=== PATIENT | female | born 1975 | race Caucasian/White ===

== ENCOUNTER 2016-11-01 07:40 | Observation (INO) | payer OTHER ==
[2016-11-01] MEDS ORDERED: SODIUM CHLORIDE 0.9% 1,000 ML IV STA (08:31)
[2016-11-01] MEDS ORDERED: DICYCLOMINE 10 MG/ML 2 ML AMP IM STA (08:52)
[2016-11-01] MEDS ORDERED: SODIUM CHLORIDE 0.9% 500 ML IV STA (08:52)
[2016-11-01 08:54] LABS: Basophils # (A) 0.3 k/uL (0-0.2); Basophils % (A) 2 %; CH 34.6; CHCM 35.7; Eosinophils # (A) 0.2 k/uL (0-0.7); Eosinophils % (A) 1 %; HCT 45.6 % (34.0-46.0); HDW 2.56; HGB 15.4 gm/dL (11.4-16.0); Luc # (Auto) 0.15; Luc % (Auto) 1; Lymphocytes # (A) 3.4 k/uL (1.0-4.8); Lymphocytes % (A) 19 %; MCHC 33.9 g/dL (31.0-37.0); MCV 97.6 fL (80.0-100.0); Mean Platelet Volume 7.5; Monocytes # (A) 0.8 k/uL (0-1.0); Monocytes % (A) 5 %; Neutrophils # (A) 13.5 k/uL (1.3-7.7); Neutrophils % (A) 74 %; RBC 4.67 m/uL (3.80-5.40); RDW 13.3 % (11.5-15.5); WBC 18.3 k/uL (3.8-10.6); WBC (Perox) 17.67
--- NOTE | 2016-11-01 08:58 | ED ---
General Adult HPI - General Chief complaint: GI Bleed Stated complaint: abd pain, rectal bleeding Time Seen by Provider: 11/01/16 08:35 Source: patient, RN notes reviewed Mode of arrival: ambulatory Limitations: no limitations - History of Present Illness Initial comments: 41-year-old female presents to the emergency department with a chief complaint of rectal bleeding. Patient states on Sunday she started to have some lower abdominal cramping and she had one episode of diarrhea. Patient states that then since Sunday she continues to have abdominal cramping but now instead of diarrhea she just having bright red blood per rectum. Patient states only happens when she feels like she has to go the bathroom. Patient states she's had multiple episodes. Patient states this morning she had at least 4. Patient states she hasn't had any lightheadedness or dizziness with this. Patient denies any history of this in the past. Patient does have a family history of Crohn's disease. Patient has never been diagnosed herself. Patient states there is been no nausea or vomiting with this. Patient states she was concerned due to the continued abdominal cramping and diarrhea so she thought that she should be evaluated.Patient denies any recent fever, chills, shortness of breath, chest pain, back pain, nausea vomiting, numbness or tingling, dysuria or hematuria, constipation or diarrhea, headaches or visual changes, or any other current symptoms. - Related Data Home Medications Medication Instructions Recorded Confirmed ALPRAZolam [Xanax] 1 mg PO QID PRN 04/04/15 11/01/16 Levothyroxine Sodium [Synthroid] 25 mcg PO DAILY 04/04/15 11/01/16 Omeprazole [PriLOSEC] 20 mg PO AC-BID 04/04/15 11/01/16 amLODIPine BESYLATE [Norvasc] 10 mg PO DAILY 04/04/15 11/01/16 Butalb/Asprin/Caff 50-325-40Mg 1 cap PO TID PRN 11/01/16 11/01/16 [Fiorinal 50-325-40 MG] Epitol 200mg 200 mg PO BID 11/01/16 11/01/16 Folic Acid 1 mg PO DAILY 11/01/16 11/01/16 Hydrocodone/Acetaminophen [[place] 1 tab PO Q6H PRN 11/01/16 11/01/16 10-325] Lisinopril 20 mg PO BID 11/01/16 11/01/16 Methotrexate Sodium [Methotrexate] 12.5 mg PO FR 11/01/16 11/01/16 Propranolol HCl 80 mg PO BID 11/01/16 11/01/16 Verapamil HCl [Verapamil ER] 180 mg PO DAILY 11/01/16 11/01/16 Vortioxetine Hydrobromide 20 mg PO DAILY 11/01/16 11/01/16 [Trintellix] Allergies Allergy/AdvReac Type Severity Reaction Status Date / Time Penicillins Allergy Anaphylaxis Verified 11/01/16 08:03 Review of Systems ROS Statement: Those systems with pertinent positive or pertinent negative responses have been documented in the HPI. ROS Other: All systems not noted in ROS Statement are negative. Past Medical History Past Medical History: Fibromyalgia Additional Past Medical History / Comment(s): migraines History of Any Multi-Drug Resistant Organisms: None Reported Past Surgical History: Cholecystectomy, Hysterectomy Past Psychological History: Anxiety, Depression Smoking Status: Current every day smoker Past Alcohol Use History: None Reported Past Drug Use History: None Reported General Exam - General Exam Comments Initial Comments: General: The patient is awake and alert, in no distress, and does not appear acutely ill. Eye: Pupils are equal, round and reactive to light, extra-ocular movements are intact; there is normal conjunctiva bilaterally. No signs of icterus. Ears, nose, mouth and throat: There are moist mucous membranes and no oral lesions. Neck: The neck is supple, there is no tenderness. Cardiovascular: There is a regular rate and rhythm. No murmur, rub or gallop is appreciated. Respiratory: Lungs are clear to auscultation, respirations are non-labored, breath sounds are equal. No wheezes, stridor, rales, or rhonchi. Gastrointestinal: Soft, non-distended, mild tenderness in the right lower quadrant of the abdomen without masses or organomegaly noted. There is no rebound or guarding present. No CVA tenderness. Bowel sounds are unremarkable. Back: There is no tenderness to palpation in the midline. There is no obvious deformity. No rashes noted. Musculoskeletal: Normal ROM, no tenderness, There is no pedal edema. There is no calf tenderness or swelling. Sensation intact. Pulses equal bilaterally 2+. Neurological: CN II-XII intact, There are no obvious motor or sensory deficits. Coordination appears grossly intact. Speech is normal. Skin: Skin is warm and dry and no rashes or lesions are noted. Psychiatric: Cooperative, appropriate mood & affect, normal judgment. Limitations: no limitations Course Vital Signs 11/01/16 08:28 Temperature 97.8 F Pulse Rate 124 H Respiratory 18 Rate Blood Pressure 132/97 O2 Sat by Pulse 99 Oximetry Medical Decision Making - Medical Decision Making 40-year-old female presents emergency department chief complaint of bloody diarrhea. At this time patient's lab work was reviewed as well as CAT scan. Patient has an elevated white blood cell count along with colitis-type changes suspicious for inflammatory. At this time we will start the patient on antibiotics as well as steroids. We will consult GI regarding the case. We did discuss this with the patient and she does agree to admission. Stool sample is at bedside with a straight blood. At this time patient will be admitted. - Lab Data Result diagrams: 11/01/16 08:23 11/01/16 08:23 Lab Results 11/01/16 11/01/16 11/01/16 Range/Units 08:23 08:23 08:23 WBC 18.3 H (3.8-10.6) k/uL RBC 4.67 (3.80-5.40) m/uL Hgb 15.4 (11.4-16.0) gm/dL Hct 45.6 (34.0-46.0) % MCV 97.6 (80.0-100.0) fL MCH 33.0 (25.0-35.0) pg MCHC 33.9 (31.0-37.0) g/dL RDW 13.3 (11.5-15.5) % Plt Count 458 H (150-450) k/uL Neutrophils % 74 % Lymphocytes % 19 % Monocytes % 5 % Eosinophils % 1 % Basophils % 2 % Neutrophils # 13.5 H (1.3-7.7) k/uL Lymphocytes # 3.4 (1.0-4.8) k/uL Monocytes # 0.8 (0-1.0) k/uL Eosinophils # 0.2 (0-0.7) k/uL Basophils # 0.3 H (0-0.2) k/uL Sodium 132 L (137-145) mmol/L Potassium 4.3 (3.5-5.1) mmol/L Chloride 96 L (98-107) mmol/L Carbon Dioxide 20 L (22-30) mmol/L Anion Gap 16 mmol/L BUN 11 (7-17) mg/dL Creatinine 1.01 (0.52-1.04) mg/dL Est GFR (MDRD) Af Amer >60 (>60 ml/min/1.73 sqM) Est GFR (MDRD) Non-Af 60 (>60 ml/min/1.73 sqM) Glucose 108 H (74-99) mg/dL Plasma Lactic Acid Meir (0.7-2.0) mmol/L Calcium 10.1 (8.4-10.2) mg/dL Total Bilirubin 0.8 (0.2-1.3) mg/dL AST 19 (14-36) U/L ALT 38 (9-52) U/L Alkaline Phosphatase 110 (38-126) U/L Total Protein 8.6 H (6.3-8.2) g/dL Albumin 5.1 H (3.5-5.0) g/dL Amylase 43 (30-110) U/L Lipase 81 (23-300) U/L Urine Color Yellow Urine Appearance Cloudy H (Clear) Urine pH 5.0 (5.0-8.0) Ur Specific [place] 1.017 (1.001-1.035) Urine Protein Trace H (Negative) Urine Glucose (UA) Negative (Negative) Urine Ketones 1+ H (Negative) Urine Blood Negative (Negative) Urine Nitrate Negative (Negative) Urine Bilirubin Negative (Negative) Urine Urobilinogen <2.0 (<2.0) mg/dL Ur Leukocyte Esterase Negative (Negative) Urine WBC 3 (0-5) /hpf Ur Squamous Epith Cells 8 H (0-4) /hpf Urine Bacteria Few H (None) /hpf Hyaline Casts 17 H (0-2) /lpf Urine Mucus Few H (None) /hpf Blood Type Blood Type Recheck Antibody Screen Spec Expiration Date 11/01/16 11/01/16 Range/Units 09:35 09:35 WBC (3.8-10.6) k/uL RBC (3.80-5.40) m/uL Hgb (11.4-16.0) gm/dL Hct (34.0-46.0) % MCV (80.0-100.0) fL MCH (25.0-35.0) pg MCHC (31.0-37.0) g/dL RDW (11.5-15.5) % Plt Count (150-450) k/uL Neutrophils % % Lymphocytes % % Monocytes % % Eosinophils % % Basophils % % Neutrophils # (1.3-7.7) k/uL Lymphocytes # (1.0-4.8) k/uL Monocytes # (0-1.0) k/uL Eosinophils # (0-0.7) k/uL Basophils # (0-0.2) k/uL Sodium (137-145) mmol/L Potassium (3.5-5.1) mmol/L Chloride (98-107) mmol/L Carbon Dioxide (22-30) mmol/L Anion Gap mmol/L BUN (7-17) mg/dL Creatinine (0.52-1.04) mg/dL Est GFR (MDRD) Af Amer (>60 ml/min/1.73 sqM) Est GFR (MDRD) Non-Af (>60 ml/min/1.73 sqM) Glucose (74-99) mg/dL Plasma Lactic Acid Meir 1.7 (0.7-2.0) mmol/L Calcium (8.4-10.2) mg/dL Total Bilirubin (0.2-1.3) mg/dL AST (14-36) U/L ALT (9-52) U/L Alkaline Phosphatase (38-126) U/L Total Protein (6.3-8.2) g/dL Albumin (3.5-5.0) g/dL Amylase (30-110) U/L Lipase (23-300) U/L Urine Color Urine Appearance (Clear) Urine pH (5.0-8.0) Ur Specific [place] (1.001-1.035) Urine Protein (Negative) Urine Glucose (UA) (Negative) Urine Ketones (Negative) Urine Blood (Negative) Urine Nitrate (Negative) Urine Bilirubin (Negative) Urine Urobilinogen (<2.0) mg/dL Ur Leukocyte Esterase (Negative) Urine WBC (0-5) /hpf Ur Squamous Epith Cells (0-4) /hpf Urine Bacteria (None) /hpf Hyaline Casts (0-2) /lpf Urine Mucus (None) /hpf Blood Type A Positive Blood Type Recheck CABO Indicated Antibody Screen NEGATIVE Spec Expiration Date 11/04/2016 - 9635 Disposition Clinical Impression: GI bleed, Colitis Disposition: ADMITTED IP TO THIS HOSP Condition: Stable Time of Disposition: : Decision Date: 11/01/16 Decision Time: :
[2016-11-01 09:03] LABS: ALT 38 U/L (9-52); AST 19 U/L (14-36); Alkaline Phosphatase 110 U/L (38-126); Amylase 43 U/L (30-110); Anion Gap 16 mmol/L; Blood Urea Nitrogen 11 mg/dL (7-17); Calcium 10.1 mg/dL (8.4-10.2); Carbon Dioxide 20 mmol/L (22-30); Chloride 96 mmol/L (98-107); Glucose 108 mg/dL (74-99); Non-African American GFR(MDRD) 60 (>60 ml/min/1.73 sqM); Potassium 4.3 mmol/L (3.5-5.1); Sodium 132 mmol/L (137-145); Total Bilirubin 0.8 mg/dL (0.2-1.3); Total Protein 8.6 g/dL (6.3-8.2)
[2016-11-01 09:18] LABS: Appearance,Urine Cloudy (Clear); Bacteria,Urine Few /hpf; Bilirubin,Urine Negative (Negative); Glucose,Urine (UA) Negative (Negative); Ketones,Urine 1+ (Negative); Leukocyte Esterase,Urine Negative (Negative); Mucus,Urine Few /hpf; Nitrite,Urine Negative (Negative); Particle Count 9354; Protein,Urine Trace (Negative); Specific Gravity,Urine 1.017 (1.001-1.035); Squamous Epithelial Cell,Urine 8 /hpf (0-4); UA Billing (MACRO vs. MICRO) MICRO; Urobilinogen,Urine <2.0 mg/dL (<2.0); WBC,Urine 3 /hpf (0-5)
[2016-11-01] MEDS ORDERED: RX INFO: IV CONTRAST WAS GIVEN 1 EACH MISC MISCELLANE PRN (10:02)
--- NOTE | 2016-11-01 10:42 | CT ---
EXAMINATION TYPE: CT abdomen pelvis w con DATE OF EXAM: 11/01/2016 10:25 AM COMPARISON: NONE HISTORY: 41-year-old female with pain, rectal bleeding TECHNIQUE: Contiguous axial scanning of the abdomen and pelvis following administration of 100 ml Omn ipaque 300 IV contrast. Delayed images through the kidneys and coronal/sagittal reconstructions perf ormed. CT DLP: 1345 mGycm Automated exposure control for dose reduction was used. FINDINGS: Heart is normal size without pericardial effusion.. Lung bases are clear without pleural effusion. Mild prominence to the biliary system likely secondary to postcholecystectomy status. Bile duct measu res 8 mm. No focal liver lesion. Portal venous system is patent. Adrenal glands, kidneys, spleen, and pancreas appear within normal limits. There is a 3.5 mm round metallic density seen at the level of the mid transverse colon likely some ty pe of ingested foreign body material. No dilated small bowel, free fluid, or free air. Moderate stool within the cecum which is distended up to 5.7 cm wide, within normal limits. There is moderate wall thickening of the left hemicolon beginning from the splenic flexure to a great er extent along the mid to distal sigmoid with some mucosal hyperemia and loss of the normal haustral pattern. Trace pelvic free fluid is present. The appendix is not discretely visualized. Scattered nonenlarged mesenteric lymph nodes are present. Bladder is partially urine distended. Uterus not seen and could be surgically absent. Both ovaries ar e visualized and are normal size. No pelvic lymphadenopathy. Bones: No osseous destructive process. IMPRESSION: 1. INFECTIOUS OR INFLAMMATORY COLITIS EXTENDING FROM THE SPLENIC FLEXURE DISTALLY THROUGH THE SIGMOID WITH THE MOST PRONOUNCED WALL THICKENING AND INFLAMMATION IN THE MID TO DISTAL SIGMOID COLON WHERE T HERE IS LOSS OF THE NORMAL HAUSTRAL PATTERN. ULCERATIVE COLITIS IS IN THE DIFFERENTIAL. 2. SMALL AMOUNT OF PELVIC FREE FLUID LIKELY REACTIVE. 3. A TINY 3.5 MM ROUND METALLIC DENSITY WITHIN THE MID TRANSVERSE COLON SUGGESTS SOME TYPE OF INGESTE D FOREIGN BODY MATERIAL. CLINICALLY CORRELATE.
[2016-11-01] MEDS ORDERED: HYDROmorphone 1 MG/ML 1 ML SYRINGE IVP STA (10:46)
[2016-11-01] MEDS ORDERED: methylPREDNISolone SOD SUCCI 125 MG/2 ML VIAL IV STA (10:46)
[2016-11-01] MEDS ORDERED: ONDANSETRON 4 MG/2 ML VIAL IVP PRN (11:27)
[2016-11-01] MEDS ORDERED: NALOXONE 0.4 MG/ML 1 ML VIAL IV PRN (11:27)
[2016-11-01] MEDS ORDERED: metroNIDAZOLE-NS PMX 500 MG in SALINE 1 100ML.BAG IVPB STA (11:29)
[2016-11-01] MEDS ORDERED: NON-FORMULARY DRUG (Butalb/Asprin/Caff 50-325-40mg 1 CAP) PO PRN (11:29)
[2016-11-01] MEDS ORDERED: LEVOFLOXACIN 500MG-D5W PMX 500 MG in DEXTROSE/WATER 1 100ML.BAG IVPB STA (11:29)
[2016-11-01] MEDS: SODIUM CHLORIDE 0.9% 1,000 ML IV SCH ×2 (13:52→20:55)
[2016-11-01] MEDS: HYDROmorphone 1 MG/ML 1 ML SYRINGE IV PRN ×3 (14:38→23:29)
[2016-11-01] MEDS: ALPRAZolam 0.5 MG TAB PO PRN ×2 (14:50→23:43)
[2016-11-01 14:51] LABS: Basophils # (A) 0.1 k/uL (0-0.2); Basophils % (A) 1 %; CH 34.5; CHCM 35.2; Eosinophils % (A) 0 %; HCT 41.3 % (34.0-46.0); HDW 2.52; HGB 13.9 gm/dL (11.4-16.0); Luc # (Auto) 0.03; Luc % (Auto) 0; Lymphocytes % (A) 8 %; MCH 33.1 pg (25.0-35.0); MCHC 33.6 g/dL (31.0-37.0); MCV 98.6 fL (80.0-100.0); Mean Platelet Volume 7.4; Monocytes # (A) 0.2 k/uL (0-1.0); Monocytes % (A) 2 %; Neutrophils # (A) 11.2 k/uL (1.3-7.7); Neutrophils % (A) 90 %; RBC 4.19 m/uL (3.80-5.40); RDW 13.3 % (11.5-15.5); WBC 12.5 k/uL (3.8-10.6)
[2016-11-01 15:09] LABS: ALT 38 U/L (9-52); AST 14 U/L (14-36); Alkaline Phosphatase 98 U/L (38-126); Anion Gap 14 mmol/L; Blood Urea Nitrogen 8 mg/dL (7-17); Calcium 9.3 mg/dL (8.4-10.2); Carbon Dioxide 17 mmol/L (22-30); Chloride 102 mmol/L (98-107); Glucose 124 mg/dL (74-99); Non-African American GFR(MDRD) >60 (>60 ml/min/1.73 sqM); Potassium 4.6 mmol/L (3.5-5.1); Sodium 133 mmol/L (137-145); Total Bilirubin 0.6 mg/dL (0.2-1.3); Total Protein 7.6 g/dL (6.3-8.2)
[2016-11-01] MEDS: HYDROcodone/APAP 10-325MG 1 EACH TAB PO PRN (16:49)
[2016-11-01] MEDS: PANTOPRAZOLE 40 MG TABLET PO SCH (16:50)
[2016-11-01] MEDS: NICOTINE 14MG/24HR PATCH TRANSDERM SCH (18:54)
[2016-11-01] MEDS: LISINOPRIL 20 MG TAB PO SCH (20:51)
[2016-11-01] MEDS: carBAMazepine 200 MG TAB PO SCH (20:51)
[2016-11-01] MEDS: FAMOTIDINE 20 MG TAB PO SCH (20:51)
[2016-11-01] MEDS: PROPRANOLOL LA 80 MG CAP.SA.24H PO SCH (20:51)
[2016-11-02] MEDS: HYDROcodone/APAP 10-325MG 1 EACH TAB PO PRN ×2 (03:03→10:37)
[2016-11-02] MEDS: HYDROmorphone 1 MG/ML 1 ML SYRINGE IV PRN ×6 (05:53→22:23)
[2016-11-02] MEDS: LEVOTHYROXINE 25 MCG TAB PO SCH (05:54)
[2016-11-02] MEDS: ALPRAZolam 0.5 MG TAB PO PRN ×3 (06:12→18:37)
[2016-11-02 08:34] LABS: Basophils % (A) 0 %; CH 34.3; CHCM 34.6; Eosinophils # (A) 0.1 k/uL (0-0.7); Eosinophils % (A) 1 %; HCT 33.9 % (34.0-46.0); HDW 2.46; HGB 11.5 gm/dL (11.4-16.0); Luc # (Auto) 0.16; Luc % (Auto) 2; Lymphocytes # (A) 3.1 k/uL (1.0-4.8); Lymphocytes % (A) 30 %; MCH 33.7 pg (25.0-35.0); MCHC 33.9 g/dL (31.0-37.0); MCV 99.4 fL (80.0-100.0); Mean Platelet Volume 6.6; Monocytes # (A) 0.5 k/uL (0-1.0); Monocytes % (A) 5 %; Neutrophils # (A) 6.3 k/uL (1.3-7.7); Neutrophils % (A) 62 %; RBC 3.42 m/uL (3.80-5.40); RDW 13.4 % (11.5-15.5); WBC 10.2 k/uL (3.8-10.6)
[2016-11-02 08:36] LABS: ALT 34 U/L (9-52); AST 11 U/L (14-36); Alkaline Phosphatase 57 U/L (38-126); Anion Gap 10 mmol/L; Blood Urea Nitrogen 5 mg/dL (7-17); Calcium 8.8 mg/dL (8.4-10.2); Carbon Dioxide 21 mmol/L (22-30); Chloride 106 mmol/L (98-107); Glucose 94 mg/dL (74-99); Non-African American GFR(MDRD) >60 (>60 ml/min/1.73 sqM); Potassium 3.9 mmol/L (3.5-5.1); Sodium 137 mmol/L (137-145); Total Bilirubin 0.4 mg/dL (0.2-1.3); Total Protein 6.3 g/dL (6.3-8.2)
[2016-11-02] MEDS: NON-FORMULARY DRUG (Vortioxetine Hydrobromide [Trintellix] 20 MG) PO SCH (08:47)
[2016-11-02] MEDS: PROPRANOLOL LA 80 MG CAP.SA.24H PO SCH ×2 (08:55→22:16)
[2016-11-02] MEDS: LISINOPRIL 20 MG TAB PO SCH ×2 (08:55→22:16)
[2016-11-02] MEDS: amLODIPine 10 MG TAB PO SCH (08:56)
[2016-11-02] MEDS: PANTOPRAZOLE 40 MG TABLET PO SCH ×2 (08:56→17:07)
[2016-11-02] MEDS: FAMOTIDINE 20 MG TAB PO SCH ×2 (08:56→22:16)
[2016-11-02] MEDS: VERAPAMIL SR 180 MG TABLET.ER PO SCH (08:57)
[2016-11-02] MEDS: methylPREDNISolone SOD SUCCI 125 MG/2 ML VIAL IV SCH (08:59)
[2016-11-02] MEDS: carBAMazepine 200 MG TAB PO SCH ×2 (08:59→22:16)
[2016-11-02] MEDS: FOLIC ACID 1 MG TAB PO SCH (08:59)
[2016-11-02] MEDS: SODIUM CHLORIDE 0.9% 1,000 ML IV SCH ×2 (09:02→16:25)
--- NOTE | 2016-11-02 10:40 | P.HPIM ---
History of Present Illness H&P Date: 11/02/16 Chief Complaint: Abdominal pain with bloody diarrhea This is a 41-year-old female with a known past medical history of fibromyalgia, rheumatoid arthritis, migraines, nicotine dependence, hypothyroidism, hypertension, anxiety and depression. Patient presents to the emergency room with the chief complaint of abdominal pain and rectal bleeding. Symptoms started on Sunday. Patient was having sharp lower abdominal cramping. She had about 2 hours of multiple episodes of watery stools. Then she started having bright red blood from her rectum. She came into the emergency room for further evaluation and treatment. She does have a grandmother with a history of colitis and colon cancer. Patient has never had colonoscopy and has never had symptoms like this previous. Patient denies any nausea or vomiting. Denies any fevers chills or sweats. Denies any chest pain or shortness of breath. Denies any difficulty urinating. Computed tomography scan of the abdomen will reveals infectious or inflammatory colitis extending from the splenic flexure lectured distally through the sigmoid with most pronounced wall thickening and inflammation in the mid to distal sigmoid colon. There is also a tiny 3.5 mm round metallic density within the mid transverse colon which suggests some type of ingested foreign body material. Patient was started on IV steroids and Levaquin and Flagyl. GI has been consulted. Continue with IV fluid hydration. White count 18.3, hemoglobin 15.4 sodium of 132 and CO2 of 17. Lactic acid was 1.7. Patient denies being around any other people with similar symptoms. Denies any recent traveling. Review of Systems Please refer to HPI otherwise unremarkable Past Medical History Past Medical History: Fibromyalgia, Hypertension, Rheumatoid Arthritis (RA), Seizure Disorder Additional Past Medical History / Comment(s): Last seizure-06/2016, migraines History of Any Multi-Drug Resistant Organisms: None Reported Past Surgical History: Cholecystectomy, Hysterectomy Past Anesthesia/Blood Transfusion Reactions: No Reported Reaction Past Psychological History: Anxiety, Depression Additional Psychological History / Comment(s): Pt resides with her parents. She does not drive. She either takes a cab or her exhusband takes her to [employer]. Smoking Status: Current every day smoker Past Alcohol Use History: None Reported Additional Past Alcohol Use History / Comment(s): Pt states she started smoking in 1990. She is less than a ppd smoker. Past Drug Use History: None Reported - Past Family History Father Family Medical History: COPD Additional Family Medical History / Comment(s): Father is a smoker. Mother Family Medical History: No Reported History Medications and Allergies Home Medications Medication Instructions Recorded Confirmed Type ALPRAZolam [Xanax] 1 mg PO QID PRN 04/04/15 11/01/16 History Levothyroxine Sodium [Synthroid] 25 mcg PO DAILY 04/04/15 11/01/16 History Omeprazole [PriLOSEC] 20 mg PO AC-BID 04/04/15 11/01/16 History amLODIPine BESYLATE [Norvasc] 10 mg PO DAILY 04/04/15 11/01/16 History Butalb/Asprin/Caff 50-325-40Mg 1 cap PO TID PRN 11/01/16 11/01/16 History [Fiorinal 50-325-40 MG] Epitol 200mg 200 mg PO BID 11/01/16 11/01/16 History Folic Acid 1 mg PO DAILY 11/01/16 11/01/16 History Hydrocodone/Acetaminophen [[place] 1 tab PO Q6H PRN 11/01/16 11/01/16 History 10-325] Lisinopril 20 mg PO BID 11/01/16 11/01/16 History Methotrexate Sodium [Methotrexate] 12.5 mg PO FR 11/01/16 11/01/16 History Propranolol HCl 80 mg PO BID 11/01/16 11/01/16 History Verapamil HCl [Verapamil ER] 180 mg PO DAILY 11/01/16 11/01/16 History Vortioxetine Hydrobromide 20 mg PO DAILY 11/01/16 11/01/16 History [Trintellix] Allergies Allergy/AdvReac Type Severity Reaction Status Date / Time Penicillins Allergy Anaphylaxis Verified 11/01/16 08:03 Physical Exam Vitals: Vital Signs Temp Pulse Pulse Resp BP BP Pulse Ox 11/02/16 07:00 97.7 F 84 16 103/59 97 11/01/16 22:16 97.8 F 100 16 130/87 95 11/01/16 15:43 95 11/01/16 14:52 97.3 F L 95 16 158/94 98 11/01/16 12:02 98.3 F 55 L 16 139/81 95 Intake and Output 11/01/16 11/02/16 11/02/16 22:59 06:59 14:59 Intake Total 240 540 Balance 240 540 Intake: Oral 240 540 Other: # Voids 1 2 Head normocephalic Neck supple Lungs clear to auscultation bilaterally no wheezing or crackles Heart regular rate and rhythm S1-S2, no rub or gallop Abdomen is soft lower abdominal nondistended positive bowel sounds no hepatosplenomegaly Extremities no edema Neuro alert and orientated to 3 Results CBC & Chem 7: 11/02/16 07:54 11/02/16 07:54 Labs: Abnormal Lab Results - Last 24 Hours (Table) 11/01/16 11/01/16 11/02/16 Range/Units 14:02 14:02 07:54 WBC 12.5 H (3.8-10.6) k/uL RBC 3.42 L (3.80-5.40) m/uL Hct 33.9 L (34.0-46.0) % Neutrophils # 11.2 H (1.3-7.7) k/uL Sodium 133 L (137-145) mmol/L Carbon Dioxide 17 L (22-30) mmol/L BUN (7-17) mg/dL Glucose 124 H (74-99) mg/dL AST (14-36) U/L 11/02/16 Range/Units 07:54 WBC (3.8-10.6) k/uL RBC (3.80-5.40) m/uL Hct (34.0-46.0) % Neutrophils # (1.3-7.7) k/uL Sodium (137-145) mmol/L Carbon Dioxide 21 L (22-30) mmol/L BUN 5 L (7-17) mg/dL Glucose (74-99) mg/dL AST 11 L (14-36) U/L Thrombosis Risk Factor Assmnt - Choose All That Apply Any of the Below Risk Factors Present?: Yes Each Factor Represents 1 point: Age 41-60 years, Obesity (BMI >25) Other Risk Factors: No Other congenital or acquired thrombophilia - If yes, enter type in comment: No Thrombosis Risk Factor Assessment Total Risk Factor Score: 2 Thrombosis Risk Factor Assessment Level: Low Risk Assessment and Plan Plan: 1. Cramping abdominal pain with rectal bleeding with a computed tomography scan showing infectious or inflammatory colitis extending from the splenic flexure distally through the sigmoid with most pronounced wall thickening and inflammation in the mid to distal sigmoid colon. There is also evidence of a tiny 3.5 mm round metallic density within the mid transverse colon. Check stool studies. We'll continue Levaquin 500 IV daily with Flagyl 500 IV every 8 hours. Patient is been placed on IV steroids 60 mg IV daily. GI service consulted. Continue with IV fluids. Patient currently on a clear liquid diet area did patient did receive Bentyl in the emergency room also continue with IV Dilaudid as needed for pain control 2. Leukocytosis showing improvement likely secondary to the colitis 3. Evidence of dehydration on admission improving with IV fluids 4. Hyponatremia improved with IV fluids 5. Nicotine dependence: Discussed smoking cessation for about 5 minutes. Patient placed on nicotine patch 6. Essential hypertension: Blood pressure stable to his current medications 7. History of rheumatoid arthritis maintained on methotrexate 8. Hypothyroidism continue with her Synthroid 9. History of fibromyalgia GI prophylaxis Protonix and DVT prophylaxis SCDs Time with Patient: Greater than 30 (Greater than 50% of the total time spent in counseling and coordination of care.I performed an examination of the patient and discussed their management with the physician Metabolic Specialist. I have reviewed the Physician Metabolic Specialist's notes and agree with the documented findings and plan of care)
[2016-11-02] MEDS: NICOTINE 14MG/24HR PATCH TRANSDERM SCH (10:48)
[2016-11-02] MEDS: diphenhydrAMINE 25 MG CAP PO PRN (12:47)
[2016-11-02] MEDS: LEVOFLOXACIN 500MG-D5W PMX 500 MG in DEXTROSE/WATER 1 100ML.BAG IVPB SCH (13:53)
--- NOTE | 2016-11-02 14:13 | P.CONS ---
History of Present Illness - Reason for Consult Consult date: 11/02/16 GI bleed Requesting physician: Kishore Collado - History of Present Illness 41-year-old female patient Dr. Collado with a past history of rheumatoid arthritis, fibromyalgia, constipation, seizure disorder, hypertension, migraines , anxiety, depression, and familial ulcerative colitis; maternal grandmother. Presents with three-day history of severe abdominal cramping that started Sunday with nonbloody diarrhea followed by passage of gross amount of blood. Bloody bowel movement have been tapering off over the last 2 days. Last bloody bowel movement was yesterday. So expressing lower abdominal cramping. No history GI bleed EGD or colonoscopy. No history of personal rheumatoid bowel disease. No recent antibiotics, or recent travels, or changes in diet. Started methotrexate a few months ago for her rheumatoid arthritis. No aspirin and NSAIDs or antiplatelet medications. Hemoglobin 15.4 currently 11.5. White count 10.2. BUN 5. Creatinine 0.7. CT abdomen and pelvis reported infectious or inflammatory colitis extent from the splenic flexure distally through the sigmoid with most pronounced wall thickening and inflammation in the mid to distal sigmoid. Ulcerative colitis within the differential. Review of Systems Constitutional: Denies fever, chills, sweats, weight gain, or loss. HEENT: Negative for migraines, blurred vision or loss, earaches, drainage, tinnitus, oral mucosal lesions, dysphagia, or odynophagia. CARDIAC: Negative for chest pain, arrhythmias, or palpitation. RESPIRATORY: Negative for shortness of breath, hemoptysis, cough, or sputum production. GI: Negative for nausea, vomiting, abdominal pain, diarrhea, constipation, hematemesis, hematochezia, and melena. : Negative for hematuria, urgency, frequency, polyuria, or dysuria. GYNc: Denies possibility of . Negative vaginal discharge. MUSCULOSKELETAL: History of fibromyalgia. NEUROLOGIC: Negative for stroke or TIA. History of migraines. ENDOCRINE: History of rheumatoid arthritis. Negative for thyroid problems. SKIN: Negative for rash or itching. PSYCHIATRIC: History of depression and anxiety. All systems: negative (See HPI) Past Medical History Past Medical History: Fibromyalgia, Hypertension, Rheumatoid Arthritis (RA), Seizure Disorder Additional Past Medical History / Comment(s): Last seizure-06/2016, migraines History of Any Multi-Drug Resistant Organisms: None Reported Past Surgical History: Cholecystectomy, Hysterectomy Past Anesthesia/Blood Transfusion Reactions: No Reported Reaction Past Psychological History: Anxiety, Depression Additional Psychological History / Comment(s): Pt resides with her parents. She does not drive. She either takes a cab or her exhusband takes her to [employer]. Smoking Status: Current every day smoker Past Alcohol Use History: None Reported Additional Past Alcohol Use History / Comment(s): Pt states she started smoking in 1990. She is less than a ppd smoker. Past Drug Use History: None Reported - Past Family History Father Family Medical History: COPD Additional Family Medical History / Comment(s): Father is a smoker. Mother Family Medical History: No Reported History Medications and Allergies Home Medications Medication Instructions Recorded Confirmed Type ALPRAZolam [Xanax] 1 mg PO QID PRN 04/04/15 11/01/16 History Levothyroxine Sodium [Synthroid] 25 mcg PO DAILY 04/04/15 11/01/16 History Omeprazole [PriLOSEC] 20 mg PO AC-BID 04/04/15 11/01/16 History amLODIPine BESYLATE [Norvasc] 10 mg PO DAILY 04/04/15 11/01/16 History Butalb/Asprin/Caff 50-325-40Mg 1 cap PO TID PRN 11/01/16 11/01/16 History [Fiorinal 50-325-40 MG] Epitol 200mg 200 mg PO BID 11/01/16 11/01/16 History Folic Acid 1 mg PO DAILY 11/01/16 11/01/16 History Hydrocodone/Acetaminophen [[place] 1 tab PO Q6H PRN 11/01/16 11/01/16 History 10-325] Lisinopril 20 mg PO BID 11/01/16 11/01/16 History Methotrexate Sodium [Methotrexate] 12.5 mg PO FR 11/01/16 11/01/16 History Propranolol HCl 80 mg PO BID 11/01/16 11/01/16 History Verapamil HCl [Verapamil ER] 180 mg PO DAILY 11/01/16 11/01/16 History Vortioxetine Hydrobromide 20 mg PO DAILY 11/01/16 11/01/16 History [Trintellix] Allergies Allergy/AdvReac Type Severity Reaction Status Date / Time Penicillins Allergy Anaphylaxis Verified 11/01/16 08:03 Physical Exam Vitals: Vital Signs Temp Pulse Resp BP Pulse Ox 11/02/16 07:00 97.7 F 84 16 103/59 97 11/01/16 22:16 97.8 F 100 16 130/87 95 11/01/16 15:43 95 11/01/16 14:52 97.3 F L 95 16 158/94 98 Intake and Output 11/01/16 11/02/16 11/02/16 22:59 06:59 14:59 Intake Total 240 540 Balance 240 540 Intake: Oral 240 540 Other: # Voids 1 2 General appearance: The patient is alert, oriented, in no acute distress. HET: Head is normocephalic and atraumatic. Pupils are equal and reactive. Oropharynx is clear without lesions. Neck: Supple without lymphadenopathy. Trachea midline. Heart: S1 S2. Regular rate and rhythm. Lungs: No crackles or wheezes are heard. Abdomen: Soft, mild tenderness bilateral lower abdomen greater than left and right, nondistended with bowel sounds. No peritoneal signs. No palpable organomegaly or masses. Extremities: Normal skin color and turgor. No cyanosis, rash, ulceration, clubbing, or edema. Radial and pedal pulses are 2/4 bilaterally. Neurological: No focal deficits. Strength and sensation are grossly intact. Results CBC & Chem 7: 11/02/16 07:54 11/02/16 07:54 Labs: Abnormal Lab Results - Last 24 Hours (Table) 11/01/16 11/01/16 11/02/16 Range/Units 14:02 14:02 07:54 WBC 12.5 H (3.8-10.6) k/uL RBC 3.42 L (3.80-5.40) m/uL Hct 33.9 L (34.0-46.0) % Neutrophils # 11.2 H (1.3-7.7) k/uL Sodium 133 L (137-145) mmol/L Carbon Dioxide 17 L (22-30) mmol/L BUN (7-17) mg/dL Glucose 124 H (74-99) mg/dL AST (14-36) U/L 11/02/16 Range/Units 07:54 WBC (3.8-10.6) k/uL RBC (3.80-5.40) m/uL Hct (34.0-46.0) % Neutrophils # (1.3-7.7) k/uL Sodium (137-145) mmol/L Carbon Dioxide 21 L (22-30) mmol/L BUN 5 L (7-17) mg/dL Glucose (74-99) mg/dL AST 11 L (14-36) U/L CT scan - abdomen: report reviewed CT scan - pelvis: report reviewed (Reviewed by Dr. Wynne) Assessment and Plan (1) Colitis Narrative/Plan: 41-year-old female admitted with 3 day history of crampy abdominal pain with bloody diarrhea and CT imaging suggestive of splenic flexure colitis extending to mid sigmoid suspect ischemic possible infectious possible inflammatory. Status: Acute (2) GI bleed Status: Acute Plan: 1. Stool studies including Clostridium difficile testing. 2. Empiric IV antibiotics. 3. Clear liquid diet. 4. Sed rate CRP. 5. Colonoscopy evaluation tomorrow. The repair service dispatcher has discussed the risks, benefits and alternative therapies for the above-mentioned procedure and for both sedation/analgesia as well as necessary blood product administration, if indicated, as they pertain to this patient. The patient has indicated understanding and acceptance of the risks and procedures discussed. Thank you for this kind referral and the opportunity to participate in the care of your patient. This consultation was discussed with Dr. Wynne. The impression and plan of care have been directed as dictated.
[2016-11-02] MEDS ORDERED: PEG 3350-NA SULF,BICARB,CL/KCL 4,000 ML BOTTLE PO ONE (16:00)
[2016-11-02] MEDS: metroNIDAZOLE-NS PMX 500 MG in SALINE 1 100ML.BAG IVPB SCH (16:31)
[2016-11-03] MEDS: metroNIDAZOLE-NS PMX 500 MG in SALINE 1 100ML.BAG IVPB SCH ×4 (00:09→23:41)
[2016-11-03] MEDS: HYDROmorphone 1 MG/ML 1 ML SYRINGE IV PRN ×7 (01:32→21:26)
[2016-11-03] MEDS: ALPRAZolam 0.5 MG TAB PO PRN ×4 (01:32→21:19)
[2016-11-03] MEDS: diphenhydrAMINE 25 MG CAP PO PRN (02:52)
[2016-11-03] MEDS: SODIUM CHLORIDE 0.9% 1,000 ML IV SCH ×3 (04:34→12:12)
[2016-11-03] MEDS ORDERED: LACTATED RINGERS 1,000 ML IV SCH (07:09)
[2016-11-03] MEDS: LEVOTHYROXINE 25 MCG TAB PO SCH (07:44)
[2016-11-03] MEDS: NICOTINE 14MG/24HR PATCH TRANSDERM SCH (07:45)
[2016-11-03] MEDS: PROPRANOLOL LA 80 MG CAP.SA.24H PO SCH ×2 (07:45→21:19)
[2016-11-03] MEDS: FAMOTIDINE 20 MG TAB PO SCH ×2 (07:46→21:19)
[2016-11-03] MEDS: LISINOPRIL 20 MG TAB PO SCH ×2 (07:48→21:19)
[2016-11-03] MEDS: VERAPAMIL SR 180 MG TABLET.ER PO SCH (07:48)
[2016-11-03] MEDS: FOLIC ACID 1 MG TAB PO SCH (07:48)
[2016-11-03] MEDS: methylPREDNISolone SOD SUCCI 125 MG/2 ML VIAL IV SCH (07:48)
[2016-11-03] MEDS: PANTOPRAZOLE 40 MG TABLET PO SCH ×2 (07:48→17:57)
[2016-11-03] MEDS: carBAMazepine 200 MG TAB PO SCH ×2 (07:49→21:19)
[2016-11-03] MEDS: amLODIPine 10 MG TAB PO SCH (07:49)
[2016-11-03] MEDS: NON-FORMULARY DRUG (Vortioxetine Hydrobromide [Trintellix] 20 MG) PO SCH (07:50)
[2016-11-03 08:01] LABS: ALT 32 U/L (9-52); AST 13 U/L (14-36); Alkaline Phosphatase 56 U/L (38-126); Anion Gap 10 mmol/L; Blood Urea Nitrogen 3 mg/dL (7-17); Calcium 8.8 mg/dL (8.4-10.2); Carbon Dioxide 24 mmol/L (22-30); Chloride 104 mmol/L (98-107); Glucose 79 mg/dL (74-99); Non-African American GFR(MDRD) >60 (>60 ml/min/1.73 sqM); Potassium 3.6 mmol/L (3.5-5.1); Sodium 138 mmol/L (137-145); Total Bilirubin 0.4 mg/dL (0.2-1.3); Total Protein 6.4 g/dL (6.3-8.2)
[2016-11-03 08:03] LABS: Basophils % (A) 0 %; CH 34.1; CHCM 34.3; Eosinophils # (A) 0.1 k/uL (0-0.7); Eosinophils % (A) 1 %; HCT 31.7 % (34.0-46.0); HDW 2.48; HGB 10.8 gm/dL (11.4-16.0); Luc % (Auto) 1; Lymphocytes # (A) 2.9 k/uL (1.0-4.8); Lymphocytes % (A) 27 %; MCH 34.1 pg (25.0-35.0); MCHC 34.2 g/dL (31.0-37.0); MCV 99.9 fL (80.0-100.0); Mean Platelet Volume 7.1; Monocytes # (A) 0.5 k/uL (0-1.0); Monocytes % (A) 4 %; Neutrophils # (A) 7.1 k/uL (1.3-7.7); Neutrophils % (A) 67 %; RBC 3.17 m/uL (3.80-5.40); RDW 13.2 % (11.5-15.5); WBC 10.7 k/uL (3.8-10.6); WBC (Perox) 10.91
[2016-11-03] MEDS ORDERED: METHOTREXATE SODIUM 2.5 MG TAB PO SCH (09:00)
--- NOTE | 2016-11-03 11:23 | P.PN ---
Subjective Patient presented with abdominal pain and bloody diarrhea. Scheduled for colonoscopy today. Computed tomography scan of the abdomen showed colitis. Patient had some diarrhea yesterday. When she started the prep again she was having some bleeding. She denies any nausea or vomiting. Denies any difficulty urinating. Denies any chest pain or shortness of breath. Patient did remove her NicoDerm patch it had been causing some itching. There is no rash. We will try Nicorette gum for her cravings Objective - Vital Signs Vital signs: Vital Signs Temp 97.7 F 11/03/16 07:00 Pulse 71 11/03/16 07:00 Resp 18 11/03/16 07:00 BP 114/76 11/03/16 07:00 Pulse Ox 96 11/03/16 07:00 Intake & Output 11/02/16 11/03/16 11/03/16 18:59 06:59 18:59 Intake Total 800 Balance 800 Intake: Intake, IV Titration 800 Amount Levofloxacin 500Mg-D5w 100 Pmx 500 mg In Dextrose/ Water 1 100ml.bag @ 100 mls/hr IVPB Q24H SHELLY Rx#: [id number] Sodium Chloride 0.9% 1, 700 000 ml @ 100 mls/hr IV . Q10H SHELLY Rx#:[id number] Other: # Voids 1 # Bowel Movements 1 1 - Exam Head normocephalic Neck supple Lungs clear to auscultation bilaterally no wheezing or crackles Heart regular rate and rhythm S1-S2, no rub or gallop Abdomen is soft nontender nondistended positive bowel sounds no hepatosplenomegaly Extremities no edema Neuro alert and orientated to 3 - Labs CBC & Chem 7: 11/03/16 06:59 11/03/16 06:59 Labs: Abnormal Lab Results - Last 24 Hours (Table) 11/02/16 11/03/16 11/03/16 Range/Units 14:30 06:59 06:59 WBC 10.7 H (3.8-10.6) k/uL RBC 3.17 L (3.80-5.40) m/uL Hgb 10.8 L (11.4-16.0) gm/dL Hct 31.7 L (34.0-46.0) % BUN 3 L (7-17) mg/dL AST 13 L (14-36) U/L C-Reactive Protein 27.3 H (<10.0) mg/L Assessment and Plan Plan: 1. Colitis: With Cramping abdominal pain and rectal bleeding. CT scan showing infectious or inflammatory colitis extending from the splenic flexure distally through the sigmoid with most pronounced wall thickening and inflammation in the mid to distal sigmoid colon. There is also evidence of a tiny 3.5 mm round metallic density within the mid transverse colon. stool studies pending. We' ll continue Levaquin 500 IV daily with Flagyl 500 IV every 8 hours. Continue IV Dilaudid is seen for pain control. IV Solu-Medrol will be discontinued. Patient scheduled for colonoscopy today. Stool for C. diff negative. Fecal occult blood negative 2. Leukocytosis showing improvement likely secondary to the colitis 3. Evidence of dehydration on admission improving with IV fluids 4. Hyponatremia improved with IV fluids 5. Nicotine dependence: Discussed smoking cessation for about 5 minutes. Discontinue nicotine patch and nicotine gum 6. Essential hypertension: Blood pressure stable to his current medications 7. History of rheumatoid arthritis maintained on methotrexate 8. Hypothyroidism continue with her Synthroid 9. History of fibromyalgia GI prophylaxis Protonix and DVT prophylaxis SCDs
[2016-11-03] MEDS: NICOTINE POLACRILEX 2 MG GUM BUCCAL PRN (12:10)
[2016-11-03] MEDS ORDERED: PROPOFOL 10 MG/ML 20 ML VIAL IV ONE (12:53)
[2016-11-03] MEDS ORDERED: LIDOCAINE 1% INJ 10MG/ML (20 ML MDV) ONE (12:53)
[2016-11-03] MEDS ORDERED: IV FLUID CONTINUATION 1,000 ML IV ONE ×2 (13:01)
--- NOTE | 2016-11-03 13:15 | P.PCN ---
Date of Procedure: 11/03/16 Procedure(s) Performed: BRIEF HISTORY: Patient is a 41-year-old pleasant white female, scheduled for an elective colonoscopy as a part of acute bloody diarrhea of 24 hours duration. She presents to the hospital with severe lower abdominal pain followed by bloody diarrhea and had at least 10-15 bright red blood per rectum with loose stool. She has CT of the abdomen done that showed left-sided colitis. She is scheduled for colonoscopy to evaluate further. PROCEDURE PERFORMED: Colonoscopy with biopsy. PREOPERATIVE DIAGNOSIS: Acute bloody diarrhea. IV sedation per Anesthesia. PROCEDURE: After informed consent was obtained, the patient, was brought into the endoscopy unit. IV conscious sedation was administered by Anesthesia under continuous monitoring. Initially the Olympus CF-160 flexible video colonoscope was then inserted in the rectum, gradually advanced into the cecum without any difficulty. Careful examination was performed as the scope was gradually being withdrawn. Ileocecal valve and the appendiceal orifice were visualized and appeared normal. Prep was excellent. Mucosa of the cecum, ascending colon, transverse colon appeared normal. There was segmental colitis involving the sigmoid and descending colon extending from 20-50 cm from the anal verge with mucosal erythema and friability with some congestion of the mucosa noted consistent with ischemic colitis and biopsies were done from this area. Also there was a 5 mm polyp noted in the descending colon that was biopsied. The rectum appeared normal. Retroflexion was performed in the rectum and no lesions were seen. The patient tolerated the procedure well. IMPRESSION: Segmental colitis involving the sigmoid colon and the descending colon extending from 20-50 cm from the anal verge with mucosal erythema, congestion and some friability consistent with ischemic colitis. Status post biopsies. RECOMMENDATIONS: Findings of this examination were discussed with the patient. She will be started on a full liquid diet today and he can be done and advance as tolerated tomorrow.
[2016-11-03] MEDS: LEVOFLOXACIN 500MG-D5W PMX 500 MG in DEXTROSE/WATER 1 100ML.BAG IVPB SCH (14:16)
[2016-11-04] MEDS: HYDROmorphone 1 MG/ML 1 ML SYRINGE IV PRN ×4 (02:01→11:12)
[2016-11-04] MEDS: ALPRAZolam 0.5 MG TAB PO PRN ×2 (03:32→09:42)
[2016-11-04] MEDS: diphenhydrAMINE 25 MG CAP PO PRN (03:33)
[2016-11-04] MEDS: NICOTINE POLACRILEX 2 MG GUM BUCCAL PRN (05:09)
[2016-11-04] MEDS: LEVOTHYROXINE 25 MCG TAB PO SCH (06:13)
[2016-11-04] MEDS: VERAPAMIL SR 180 MG TABLET.ER PO SCH (08:16)
[2016-11-04] MEDS: NON-FORMULARY DRUG (Vortioxetine Hydrobromide [Trintellix] 20 MG) PO SCH (08:16)
[2016-11-04 08:17] LABS: Basophils # (A) 0.1 k/uL (0-0.2); Basophils % (A) 1 %; CH 33.6; Eosinophils # (A) 0.1 k/uL (0-0.7); Eosinophils % (A) 2 %; HCT 32.5 % (34.0-46.0); HDW 2.55; HGB 10.3 gm/dL (11.4-16.0); Luc # (Auto) 0.09; Luc % (Auto) 1; Lymphocytes # (A) 2.6 k/uL (1.0-4.8); Lymphocytes % (A) 38 %; MCH 33.4 pg (25.0-35.0); MCHC 31.7 g/dL (31.0-37.0); Macrocytosis Slight; Mean Platelet Volume 7.8; Monocytes # (A) 0.5 k/uL (0-1.0); Monocytes % (A) 7 %; Neutrophils # (A) 3.5 k/uL (1.3-7.7); Neutrophils % (A) 52 %; RBC 3.08 m/uL (3.80-5.40); RDW 13.2 % (11.5-15.5); WBC 6.8 k/uL (3.8-10.6); WBC (Perox) 6.55
[2016-11-04 08:21] LABS: MCV 105.4 fL (80.0-100.0)
[2016-11-04 08:27] LABS: ALT 38 U/L (9-52); AST 25 U/L (14-36); Alkaline Phosphatase 52 U/L (38-126); Anion Gap 10 mmol/L; Blood Urea Nitrogen <2 mg/dL (7-17); Calcium 8.5 mg/dL (8.4-10.2); Carbon Dioxide 24 mmol/L (22-30); Chloride 105 mmol/L (98-107); Glucose 79 mg/dL (74-99); Non-African American GFR(MDRD) >60 (>60 ml/min/1.73 sqM); Potassium 3.5 mmol/L (3.5-5.1); Sodium 139 mmol/L (137-145); Total Bilirubin 0.4 mg/dL (0.2-1.3); Total Protein 5.9 g/dL (6.3-8.2)
[2016-11-04 08:40] VITALS: BP 128/75; PULSE 71; RESP 18; TEMP 98.9
[2016-11-04] MEDS: PANTOPRAZOLE 40 MG TABLET PO SCH (08:53)
[2016-11-04] MEDS: metroNIDAZOLE-NS PMX 500 MG in SALINE 1 100ML.BAG IVPB SCH (08:53)
[2016-11-04] MEDS: amLODIPine 10 MG TAB PO SCH (11:13)
[2016-11-04] MEDS: carBAMazepine 200 MG TAB PO SCH (11:13)
[2016-11-04] MEDS: LISINOPRIL 20 MG TAB PO SCH (11:14)
[2016-11-04] MEDS: FOLIC ACID 1 MG TAB PO SCH (11:14)
[2016-11-04] MEDS: PROPRANOLOL LA 80 MG CAP.SA.24H PO SCH (11:14)
[2016-11-04] MEDS: FAMOTIDINE 20 MG TAB PO SCH (11:14)
--- NOTE | 2016-11-04 12:41 | P.DS ---
Providers Date of admission: 11/01/16 11:27 Expected date of discharge: 11/04/16 Attending physician: Michelle Nina Consults: 11/01/16 11:31 Consult Physician Routine Consulting Provider: Jacqueline Wynne Consult Reason/Comments: colitis Do you want consulting provider notified?: Yes Primary care physician: [facility] Course: This is a 41-year-old female with past medical history noted below who presented to the hospital with abdominal pain. She was evaluated by gastroenterology. Computed tomography scan showed evidence of colitis. The thought to be attributed to infectious colitis. Lactate level was normal on presentation. Patient underwent a colonoscopy and biopsies were obtained. She improved significantly throughout her hospital stay. She will be discharged home in a stable condition. She will follow-up with her primary care physician next week. Below is a distal for medical problems addressed during this hospitalization. 1. Acute colitis: Stool for C. diff negative. Fecal occult blood negative. Most likely infectious in origin 2. Leukocytosis showing improvement likely secondary to the colitis 3. Evidence of dehydration on admission 4. Hyponatremia 5. Nicotine dependence: Discussed smoking cessation for about 5 minutes. Discontinue nicotine patch and nicotine gum 6. Essential hypertension: Blood pressure stable to his current medications 7. History of rheumatoid arthritis maintained on methotrexate 8. Hypothyroidism continue with her Synthroid 9. History of fibromyalgia Patient Condition at Discharge: Stable Plan - Discharge Summary New Discharge Prescriptions: Levofloxacin [Levaquin] 500 mg PO DAILY #10 tab metroNIDAZOLE [Flagyl] 500 mg PO Q8HR #30 tab Discharge Medication List ALPRAZolam [Xanax] 1 mg PO QID PRN 04/04/15 [History] Levothyroxine Sodium [Synthroid] 25 mcg PO DAILY 04/04/15 [History] Omeprazole [PriLOSEC] 20 mg PO AC-BID 04/04/15 [History] amLODIPine BESYLATE [Norvasc] 10 mg PO DAILY 04/04/15 [History] Butalb/Asprin/Caff 50-325-40Mg [Fiorinal 50-325-40 MG] 1 cap PO TID PRN [History] Epitol 200mg 200 mg PO BID 11/01/16 [History] Folic Acid 1 mg PO DAILY 11/01/16 [History] Hydrocodone/Acetaminophen [[place] 10-325] 1 tab PO Q6H PRN 11/01/16 [History] Lisinopril 20 mg PO BID 11/01/16 [History] Methotrexate Sodium [Methotrexate] 12.5 mg PO FR 11/01/16 [History] Propranolol HCl 80 mg PO BID 11/01/16 [History] Verapamil HCl [Verapamil ER] 180 mg PO DAILY 11/01/16 [History] Vortioxetine Hydrobromide [Trintellix] 20 mg PO DAILY 11/01/16 [History] Levofloxacin [Levaquin] 500 mg PO DAILY #10 tab 11/04/16 [Rx] metroNIDAZOLE [Flagyl] 500 mg PO Q8HR #30 tab 11/04/16 [Rx] Follow up Appointment(s)/Referral(s): Kishore Collado MD [Primary Care Provider] - 1-2 days Discharge Disposition: HOME SELF-CARE
[2016-11-04] MEDS: LEVOFLOXACIN 500MG-D5W PMX 500 MG in DEXTROSE/WATER 1 100ML.BAG IVPB SCH (14:18)
== END 2016-11-04 15:40 | disposition home or self-care (01) ==
LOC: EC 07:40 → 5MS5E 11:27
PROVIDERS: ADMIT Internal Medicine; ATTEND Internal Medicine
DX: K55.9 Vascular disorder of intestine, unspecified (principal); K51.50 Left sided colitis without complications; D12.4 Benign neoplasm of descending colon; D72.829 Elevated white blood cell count, unspecified; E87.1 Hypo-osmolality and hyponatremia; E86.0 Dehydration; F17.200 Nicotine dependence, unspecified, uncomplicated; I10 Essential (primary) hypertension; E03.9 Hypothyroidism, unspecified; M79.7 Fibromyalgia; M06.9 Rheumatoid arthritis, unspecified; G43.909 Migraine, unspecified, not intractable, without status migrainosus; F41.9 Anxiety disorder, unspecified; F32.9 Major depressive disorder, single episode, unspecified; G40.909 Epilepsy, unspecified, not intractable, without status epilepticus; Z79.899 Other long term (current) drug therapy; Z88.0 Allergy status to penicillin; Z80.0 Family history of malignant neoplasm of digestive organs; Z83.79 Family history of other diseases of the digestive system; Z82.5 Family history of asthma and other chronic lower respiratory diseases
CPT/HCPCS: 99285 ×2; 96365 ×2; 96375 ×3; 96372 ×2; 96361 ×3; 36415; 86900; 86901; 88305; 80053 ×4; 85652; 82150; 83605; 83690; 85025 ×4; 86850; 86140; 82272; 81001; 87045; 87329; 87328; 89055; 87046; 80299; 74177; 45380; G0378 ×4; S4990 ×2; J0500; J2930 ×3; J1956 ×3; J2001; J8610; J1170 ×4; Q9967; J2704; 87324; 96366; 96367; 96376; 99153

== ENCOUNTER → 2017-02-23 | Outpatient (CLI) | payer OTHER ==
[2017-02-23 10:16] LABS: Basophils # (A) 0.1 k/uL (0-0.2); Basophils % (A) 1 %; CH 34.1; CHCM 32.2; Eosinophils # (A) 0.2 k/uL (0-0.7); Eosinophils % (A) 2 %; HCT 42.5 % (34.0-46.0); HDW 2.25; HGB 13.9 gm/dL (11.4-16.0); Luc # (Auto) 0.09; Luc % (Auto) 1; Lymphocytes # (A) 2.6 k/uL (1.0-4.8); Lymphocytes % (A) 23 %; MCH 34.9 pg (25.0-35.0); MCHC 32.8 g/dL (31.0-37.0); MCV 106.6 fL (80.0-100.0); Macrocytosis Moderate; Monocytes # (A) 0.4 k/uL (0-1.0); Monocytes % (A) 3 %; Neutrophils % (A) 71 %; RBC 3.99 m/uL (3.80-5.40); WBC 11.4 k/uL (3.8-10.6); WBC (Perox) 11.69
[2017-02-23 10:36] LABS: ALT 19 U/L (9-52); AST 26 U/L (14-36); Alkaline Phosphatase 58 U/L (38-126); Anion Gap 8 mmol/L; Blood Urea Nitrogen 14 mg/dL (7-17); Calcium 9.3 mg/dL (8.4-10.2); Carbon Dioxide 28 mmol/L (22-30); Chloride 103 mmol/L (98-107); Cholesterol 255 mg/dL (<200); Glucose 81 mg/dL (74-99); HDL Cholesterol 61 mg/dL (40-60); Non-African American GFR(MDRD) >60 (>60 ml/min/1.73 sqM); Potassium 4.9 mmol/L (3.5-5.1); Sodium 139 mmol/L (137-145); Total Bilirubin 0.6 mg/dL (0.2-1.3); Total Protein 8.1 g/dL (6.3-8.2); Triglycerides 129 mg/dL (<150)
== END | disposition home or self-care (01) ==
LOC: LABWHC1 09:29
PROVIDERS: ATTEND Internal Medicine
DX: E03.9 Hypothyroidism, unspecified (principal); I10 Essential (primary) hypertension; R56.9 Unspecified convulsions
CPT/HCPCS: 36415; 80053; 80061; 80156; 84443; 85025

== ENCOUNTER → 2017-03-30 | Outpatient (CLI) | payer OTHER ==
--- NOTE | 2017-04-03 08:12 | MR ---
EXAMINATION TYPE: MR brain/cspine wo/w DATE OF EXAM: 03/30/2017 COMPARISON: 06/12/2015 HISTORY: Migraine, neck pain, weakness in fingers TECHNIQUE: Multiplanar, multisequence images of the brain and brainstem is performed without and with IV contras t, utilizing 15 mL intravenous MultiHance . FINDINGS: Diffusion weighted images demonstrate no evidence of a recent infarct or other diffusion ab normality. There is no extra-axial fluid collection or significant white matter signal abnormality. The ventricular system and cisternal spaces are normal in size and appearance. The brain volume is age appropriate. Midline structures demonstrate normal morphology. The craniocervical junction appears within normal limits. Post contrast images demonstrate no abnormal enhancement. WHITE MATTER: There are approximately 8 white matter lesions scattered throughout both cerebral hemispheres. They appear to be stable in size, morphology and number. No callosal lesions. No enhancing lesions. No lesions perpendicular to the ventricular system. IMPRESSION: 1. Stable nonspecific white matter changes. No interval change in the size, number or morphology of t he lesions. EXAMINATION TYPE: MR cervical spine wo/w DATE OF EXAM: 03/30/2017 COMPARISON: NONE HISTORY: Migraine, neck pain, weakness in fingers Contrast: 15 mL MultiHance TECHNIQUE: T1 sagittal and coronal, T2 sagittal, and gradient echo axial views of the cervical spine are submitted. FINDINGS: The cranial cervical junction is preserved. There is no abnormal signal seen within the sp inal cord or paraspinal soft tissues. At C2-3 there is no disc herniation or canal stenosis. No foraminal encroachment. At C3-4 there is uncovertebral joint hypertrophy in the left with mild left-sided foraminal encroachm ent. No canal stenosis or disc herniation. At C4-5 there is no disc herniation or canal stenosis. No foraminal encroachment. At C5-6 there is no disc herniation or canal stenosis. No foraminal encroachment. At C6-7 there is no disc herniation or canal stenosis. No foraminal encroachment. At C7-T1 there is no disc herniation or canal stenosis. No foraminal encroachment. IMPRESSION: 1. Uncovertebral joint hypertrophy C3-C4 the left with mild left foraminal encroachment. 2. No diagnostic evidence of myelitis. g
== END ==
LOC: RADMRIMAIN 15:11
PROVIDERS: ATTEND Psychiatry & Neurology Pain Medicine
DX: M48.8X2 Other specified spondylopathies, cervical region (principal); I67.82 Cerebral ischemia
CPT/HCPCS: 70553; 72156; A9577